=== PATIENT | male | born 1945 | race Caucasian/White ===

== ENCOUNTER 2017-12-29 15:22 | Inpatient (IN) | payer MEDICARE, OTHER ==
[~2017-12-29] VITALS: Ht 182.9 cm; Wt 70.9 kg
[2017-12-29] MEDS ORDERED: LORazepam 2 mg/ml vial IV ONE (15:45)
[2017-12-29] MEDS ORDERED: aspirin 81mg tab.chew PO ONE (15:45)
[2017-12-29] MEDS ORDERED: ondansetron/PF 4mg/2ml inj IV ONE (15:45)
[2017-12-29] MEDS ORDERED: magnesium 2GM in 50ml NS 50 ML IV ONE (16:15)
[2017-12-29] MEDS ORDERED: normal saline 1000ml 1,000 ML IV ONE (16:15)
[2017-12-29] MEDS ORDERED: verapamil 2.5 mg/ml inj IV ONE ×2 (16:15→17:05)
[2017-12-29 16:56] LABS: BASOPHILS % (AUTO) 0.3 % (0-1); EOSINOPHILS % (AUTO) 0 % (0-6); HEMATOCRIT 41.8 % (42.0-52.0); HEMOGLOBIN 14.3 g/dl (14.0-17.9); LYMPHOCYTES # (AUTO) 1.1 X10'3 (1.1-4.8); MEAN CORPUSCULAR HEMOGLOBIN 30.5 PG (27.0-31.0); MEAN CORPUSCULAR HGB CONC 34.2 % (33.0-36.5); MEAN CORPUSCULAR VOLUME 89.3 FL (78-98); MONOCYTES # (AUTO) 0.5 X10'3 (0-0.9); NEUTROPHILS # (AUTO) 7.8 X10'3 (1.8-7.7); NEUTROPHILS % (AUTO) 82.7 % (42-75); PLATELET COUNT 225 X10'3 (140-440); RED BLOOD COUNT 4.67 X10'6 (4.70-6.10); RED CELL DISTRIBUTION WIDTH 14.4 % (11.5-14.5); WHITE BLOOD COUNT 9.4 X10'3 (4.5-11.0)
[2017-12-29 17:07] LABS: PARTIAL THROMBOPLASTIN TIME 26 SECONDS (22-32); PROTHROMBIN TIME 10.8 SECONDS (9.0-12.0)
[2017-12-29 17:18] LABS: ALANINE AMINOTRANSFERASE 27 U/L (12-78); ALBUMIN/GLOBULIN RATIO 1.1 (1.1-1.5); ALKALINE PHOSPHATASE 73 IU/L (46-116); ANION GAP 13 (8-16); ASPARTATE AMINO TRANSFERASE 24 U/L (10-37); BILIRUBIN,TOTAL 0.9 MG/DL (0.1-1.0); BLOOD UREA NITROGEN 17 MG/DL (7-18); BUN/CREATININE RATIO 12.5 (5.4-32.0); CALCIUM 9.3 MG/DL (8.5-10.1); CHLORIDE 107 MMOL/L (99-107); CREATININE 1.36 MG/DL (0.60-1.10); GLUCOSE 99 MG/DL (70-104); PHOSPHORUS 2.2 MG/DL (2.3-4.5); POTASSIUM 4.3 MMOL/L (3.5-5.1); SODIUM 141 MMOL/L (135-145); TOTAL CARBON DIOXIDE 21.4 MMOL/L (24-32); TOTAL PROTEIN 7.5 G/DL (6.4-8.2); eGFR 51 ML/MIN
[2017-12-29] MEDS ORDERED: diltiazem-D5W 125mg/125ml 125 ML IV ONE (17:35)
[2017-12-29] MEDS ORDERED: ondansetron/PF 4mg/2ml inj IV PRN (18:15)
[2017-12-29] MEDS ORDERED: heparin 10,000 units/1 ML INJ IV ONE (18:15)
[2017-12-29] MEDS ORDERED: mag hydrox/Alum hydrox/simeth 30ml oral suspension PO PRN (18:15)
[2017-12-29] MEDS ORDERED: morphine 4 MG/ML inj SYRINge IV PRN ×2 (18:15)
[2017-12-29] MEDS ORDERED: diltiazem-D5W 125mg/125ml 125 ML IV SCH (18:15)
[2017-12-29] MEDS ORDERED: acetaminophen 325mg tablet PO PRN (18:15)
[2017-12-29] MEDS ORDERED: magnesium hydroxide 30ml (MOM) UD suspension PO PRN (18:15)
[2017-12-29] MEDS ORDERED: aspirin 325mg tablet PO ONE (18:15)
[2017-12-29 19:56] LABS: CLARITY,URINE SLIGHTLY CLOUDY (Clear); COLOR,URINE YELLOW (Yellow); GLUCOSE, URINE NEGATIVE (Neg); KETONES,URINE 15 mg/dl (Neg); LEUKOCYTE ESTERASE ,URINE NEGATIVE (Neg); NITRITES, URINE NEGATIVE (Neg); OCCULT BLOOD,URINE TRACE-INTACT (Neg); PROTEIN,URINE 100 mg/dl (Neg); UROBILINOGEN,URINE 0.2 E.U/dL (0.2-1.0)
[2017-12-29 20:29] LABS: UA COLLECTION TYPE URINAL
[2017-12-29] MEDS: metoprolol tartrate 12.5mg (1/2 tablet) PO SCH (20:43)
[2017-12-29 20:55] LABS: CELLULAR CAST 0-4 /LPF (NEGATIVE)
[2017-12-29 20:57] LABS: RBC,URINE 0-2 /HPF (0-2); WBC,URINE 0-4 /HPF (0-4)
[2017-12-29 20:58] LABS: BACTERIA,URINE FEW /HPF (Neg); MUCUS STRANDS MANY /LPF (Neg); SQUAMOUS EPITHELIAL CELL,UR FEW /LPF (FEW)
[2017-12-29 21:32] LABS: BASOPHILS # (AUTO) 0.1 X10'3 (0-0.2); BASOPHILS % (AUTO) 1.1 % (0-1); EOSINOPHILS # (AUTO) 0.1 X10'3 (0-0.9); EOSINOPHILS % (AUTO) 0.7 % (0-6); HEMATOCRIT 39.6 % (42.0-52.0); HEMOGLOBIN 13.3 g/dl (14.0-17.9); LYMPHOCYTES # (AUTO) 1.8 X10'3 (1.1-4.8); MEAN CORPUSCULAR HGB CONC 33.5 % (33.0-36.5); MEAN CORPUSCULAR VOLUME 89.7 FL (78-98); MEAN PLATELET VOLUME 8.6 FL (7.4-10.4); MONOCYTES # (AUTO) 0.5 X10'3 (0-0.9); MONOCYTES % (AUTO) 6.7 % (2-12); NEUTROPHILS % (AUTO) 67.5 % (42-75); PLATELET COUNT 213 X10'3 (140-440); RED BLOOD COUNT 4.42 X10'6 (4.70-6.10); RED CELL DISTRIBUTION WIDTH 14.3 % (11.5-14.5); WHITE BLOOD COUNT 7.4 X10'3 (4.5-11.0)
[2017-12-29 21:45] LABS: INR 1.1 INR; PARTIAL THROMBOPLASTIN TIME 60 SECONDS (22-32)
[2017-12-30] MEDS: diltiazem SR 60mg capsule (twice daily) PO SCH ×2 (02:15→07:16)
[2017-12-30 03:11] LABS: BASOPHILS % (AUTO) 0.5 % (0-1); EOSINOPHILS # (AUTO) 0.1 X10'3 (0-0.9); EOSINOPHILS % (AUTO) 1.4 % (0-6); HEMATOCRIT 38.6 % (42.0-52.0); HEMOGLOBIN 13.1 g/dl (14.0-17.9); LYMPHOCYTES # (AUTO) 1.4 X10'3 (1.1-4.8); LYMPHOCYTES % (AUTO) 21.5 % (21-51); MEAN CORPUSCULAR HEMOGLOBIN 30.2 PG (27.0-31.0); MEAN CORPUSCULAR HGB CONC 33.9 % (33.0-36.5); MEAN CORPUSCULAR VOLUME 88.9 FL (78-98); MEAN PLATELET VOLUME 9.1 FL (7.4-10.4); MONOCYTES # (AUTO) 0.5 X10'3 (0-0.9); MONOCYTES % (AUTO) 7.7 % (2-12); NEUTROPHILS # (AUTO) 4.6 X10'3 (1.8-7.7); NEUTROPHILS % (AUTO) 68.9 % (42-75); PLATELET COUNT 205 X10'3 (140-440); RED BLOOD COUNT 4.34 X10'6 (4.70-6.10); RED CELL DISTRIBUTION WIDTH 14.5 % (11.5-14.5); WHITE BLOOD COUNT 6.6 X10'3 (4.5-11.0)
[2017-12-30 03:35] LABS: ALANINE AMINOTRANSFERASE 24 U/L (12-78); ALBUMIN 3.4 G/DL (3.4-5.0); ALBUMIN/GLOBULIN RATIO 1.1 (1.1-1.5); ALKALINE PHOSPHATASE 64 IU/L (46-116); ANION GAP 8 (8-16); ASPARTATE AMINO TRANSFERASE 24 U/L (10-37); BILIRUBIN,TOTAL 0.9 MG/DL (0.1-1.0); BLOOD UREA NITROGEN 19 MG/DL (7-18); BUN/CREATININE RATIO 16.4 (5.4-32.0); CALCIUM 8.8 MG/DL (8.5-10.1); CHLORIDE 109 MMOL/L (99-107); CHOL/HDL RATIO 3.5 (0.00-4.99); CHOLESTEROL 157 MG/DL (0-200); CREATININE 1.16 MG/DL (0.60-1.10); GLUCOSE 95 MG/DL (70-104); HDL CHOLESTEROL 45 MG/DL (35-60); LDL CHOLESTEROL 101 MG/DL (50-100); SODIUM 141 MMOL/L (135-145); TOTAL CARBON DIOXIDE 23.6 MMOL/L (24-32); TOTAL PROTEIN 6.6 G/DL (6.4-8.2); TRIGLYCERIDES 45 MG/DL (20-135); eGFR 62 ML/MIN
[2017-12-30 03:37] LABS: POTASSIUM 4.4 MMOL/L (3.5-5.1)
[2017-12-30] MEDS ORDERED: ASPI-611 PO (05:37)
[2017-12-30] MEDS: atorvastatin 20mg tablet PO SCH (07:16)
[2017-12-30] MEDS: lisinopril 2.5mg tablet PO SCH (07:17)
[2017-12-30] MEDS: metoprolol tartrate 12.5mg (1/2 tablet) PO SCH ×2 (07:17→20:43)
[2017-12-30] MEDS: aspirin 325mg tablet PO SCH (07:18)
[2017-12-30] MEDS: heparin 10,000 units/1 ML INJ IV PRN (09:42)
[2017-12-30] MEDS: diltiazem-D5W 125mg/125ml 125 ML IV SCH (10:32)
[2017-12-30 16:40] VITALS: BP 92/69
[2017-12-30 19:00] VITALS: BP 109/65
[2017-12-30 21:00] VITALS: BP 110/78
[2017-12-30] MEDS ORDERED: sodium bicarbonate (8.4%) inj. 150 MEQ in normal saline 1000ml 900 ML IV SCH (21:40)
[2017-12-30] MEDS ORDERED: amiodarone 200mg tablet PO ONE (21:40)
[2017-12-30] MEDS ORDERED: acetylcysteine 200 MG/ml 4ml vial PO ONE (21:40)
[2017-12-30] MEDS ORDERED: sodium bicarbonate (8.4%) 1 mEq/ml syringe ONE ×2 (21:49→21:50)
[2017-12-30 23:00] VITALS: BP 104/51
[2017-12-31] VITALS (22 sets, daily range): BP systolic 88–137; BP diastolic 53–91
[2017-12-31] MEDS: heparin 10,000 units/1 ML INJ IV PRN (00:49)
[2017-12-31 06:34] LABS: BASOPHILS # (AUTO) 0.1 X10'3 (0-0.2); BASOPHILS % (AUTO) 1.2 % (0-1); EOSINOPHILS # (AUTO) 0.1 X10'3 (0-0.9); HEMATOCRIT 38.9 % (42.0-52.0); HEMOGLOBIN 13.5 g/dl (14.0-17.9); LYMPHOCYTES # (AUTO) 1.5 X10'3 (1.1-4.8); LYMPHOCYTES % (AUTO) 28.2 % (21-51); MEAN CORPUSCULAR HEMOGLOBIN 30.9 PG (27.0-31.0); MEAN CORPUSCULAR HGB CONC 34.7 % (33.0-36.5); MEAN PLATELET VOLUME 9.1 FL (7.4-10.4); MONOCYTES # (AUTO) 0.4 X10'3 (0-0.9); MONOCYTES % (AUTO) 7.8 % (2-12); NEUTROPHILS # (AUTO) 3.2 X10'3 (1.8-7.7); NEUTROPHILS % (AUTO) 60.8 % (42-75); PLATELET COUNT 191 X10'3 (140-440); RED BLOOD COUNT 4.36 X10'6 (4.70-6.10); RED CELL DISTRIBUTION WIDTH 14.3 % (11.5-14.5); WHITE BLOOD COUNT 5.2 X10'3 (4.5-11.0)
[2017-12-31 07:55] LABS: ALANINE AMINOTRANSFERASE 25 U/L (12-78); ALBUMIN 3.4 G/DL (3.4-5.0); ALBUMIN/GLOBULIN RATIO 1.1 (1.1-1.5); ALKALINE PHOSPHATASE 66 IU/L (46-116); ANION GAP 14 (8-16); ASPARTATE AMINO TRANSFERASE 19 U/L (10-37); BILIRUBIN,TOTAL 0.7 MG/DL (0.1-1.0); BLOOD UREA NITROGEN 19 MG/DL (7-18); BUN/CREATININE RATIO 17.8 (5.4-32.0); CALCIUM 8.8 MG/DL (8.5-10.1); CHLORIDE 106 MMOL/L (99-107); CREATININE 1.07 MG/DL (0.60-1.10); GLUCOSE 94 MG/DL (70-104); POTASSIUM 3.9 MMOL/L (3.5-5.1); SODIUM 143 MMOL/L (135-145); TOTAL PROTEIN 6.5 G/DL (6.4-8.2); eGFR 68 ML/MIN
[2017-12-31] MEDS: metoprolol tartrate 12.5mg (1/2 tablet) PO SCH (08:00)
[2017-12-31] MEDS: lisinopril 2.5mg tablet PO SCH (08:00)
[2017-12-31] MEDS ORDERED: acetylcysteine 200 MG/ml 4ml vial PO SCH (08:00)
[2017-12-31] MEDS: furosemide 20 MG/2 ML vial IV SCH (08:07)
[2017-12-31] MEDS: atorvastatin 20mg tablet PO SCH (08:08)
[2017-12-31] MEDS: amiodarone 200mg tablet PO SCH ×2 (08:08→20:26)
[2017-12-31] MEDS: aspirin 325mg tablet PO SCH (08:24)
[2017-12-31] MEDS: diltiazem-D5W 125mg/125ml 125 ML IV SCH ×2 (08:55→11:12)
[2017-12-31] MEDS ORDERED: LORazepam 0.5 MG tablet PO PRN (11:05)
[2017-12-31] MEDS ORDERED: SODIUM CHLORIDE 0.45% IV SCH (13:00)
[2017-12-31] MEDS ORDERED: SODIUM BICARBONATE IV SCH (13:00)
[2017-12-31] MEDS ORDERED: nitroGLYCERIN-Tridil 50MG/D5W 250 ML IV ONE (15:19)
[2017-12-31] MEDS ORDERED: iohexol 350MG/ML 100ml bottle IV ONE (15:20)
[2017-12-31] MEDS ORDERED: heparin 1,000unit/ml 10ml vial 10 ML ONE (15:20)
[2017-12-31] MEDS ORDERED: LIDOcaine 1%/PF (10mg/ml) 5ml vial ONE (15:20)
[2017-12-31] MEDS ORDERED: iohexol 350 MG/ML 50ML vial IV ONE (15:20)
[2017-12-31] MEDS ORDERED: fentaNYL/PF 50MCG/1 ML 2ML syringe ONE (15:47)
[2017-12-31] MEDS ORDERED: midazolam 2 mg/2 ml injection ONE (15:47)
[2017-12-31 16:36] LABS: ISTAT HGB ART 13.9 g/dl (14.0-18.0); ISTAT Hct ART 41 %PCV (42-52); ISTAT O2 SATURATION ARTERIAL 92 % (95-98); ISTAT SOURCE ART
[2017-12-31 16:36] LABS: ISTAT Hct MIX 40 %PCV (42-52); ISTAT O2 SATURATION MIX VENOUS 72 % (60-80); ISTAT SOURCE MIX
[2017-12-31] MEDS: carVEDilol 12.5mg tablet PO SCH (20:27)
[2018-01-01 02:00] VITALS: BP 111/55
[2018-01-01 05:48] LABS: ALANINE AMINOTRANSFERASE 27 U/L (12-78); ALBUMIN 3.4 G/DL (3.4-5.0); ALBUMIN/GLOBULIN RATIO 1.1 (1.1-1.5); ALKALINE PHOSPHATASE 65 IU/L (46-116); ANION GAP 11 (8-16); ASPARTATE AMINO TRANSFERASE 16 U/L (10-37); BILIRUBIN,TOTAL 0.9 MG/DL (0.1-1.0); BLOOD UREA NITROGEN 15 MG/DL (7-18); BUN/CREATININE RATIO 13.4 (5.4-32.0); CALCIUM 8.9 MG/DL (8.5-10.1); CHLORIDE 105 MMOL/L (99-107); CREATININE 1.12 MG/DL (0.60-1.10); GLUCOSE 85 MG/DL (70-104); POTASSIUM 3.6 MMOL/L (3.5-5.1); SODIUM 144 MMOL/L (135-145); TOTAL CARBON DIOXIDE 27.7 MMOL/L (24-32); TOTAL PROTEIN 6.5 G/DL (6.4-8.2); eGFR 64 ML/MIN
[2018-01-01 07:00] VITALS: BP 114/70
[2018-01-01] MEDS: atorvastatin 20mg tablet PO SCH (07:56)
[2018-01-01] MEDS: aspirin 325mg tablet PO SCH (07:56)
[2018-01-01] MEDS: amiodarone 200mg tablet PO SCH ×2 (07:56→20:26)
[2018-01-01] MEDS: furosemide 20 MG/2 ML vial IV SCH (07:56)
[2018-01-01] MEDS: apixaban 5mg tablet PO SCH ×2 (07:56→20:24)
[2018-01-01] MEDS: carVEDilol 12.5mg tablet PO SCH ×2 (07:57→20:23)
[2018-01-01] MEDS ORDERED: carVEDilol 12.5mg tablet PO ONE (08:25)
[2018-01-01] MEDS ORDERED: spironolactone 25 MG tablet PO SCH (08:30)
[2018-01-01] MEDS ORDERED: digoxin 250mcg/ml 2ml ampule IV ONE ×3 (09:25→21:00)
[2018-01-01 11:00] VITALS: BP 106/65
[2018-01-01] MEDS ORDERED: lisinopril 5mg tablet PO SCH (12:00)
[2018-01-01 15:00] VITALS: BP 94/55
[2018-01-01] MEDS ORDERED: nitroGLYCERIN 0.4mg SUBLingual tab SL PRN (16:20)
[2018-01-01] MEDS: aspirin 81mg tablet.DR PO SCH (17:32)
[2018-01-01] MEDS ORDERED: potassium Cl 20 mEq SR tablet PO PRN ×2 (17:50)
[2018-01-01] MEDS ORDERED: magnesium 2GM in 50ml NS 50 ML IV PRN (17:50)
[2018-01-01] MEDS ORDERED: potassium Cl 40MEQ/NS 500ml 500 ML IV PRN ×2 (17:50)
[2018-01-01] MEDS ORDERED: magnesium Cl slow-release 64mg tablet PO PRN (17:50)
[2018-01-01] MEDS ORDERED: magnesium 4gm in 100ml NS 100 ML IV PRN (17:50)
[2018-01-01 18:00] VITALS: BP 135/90
[2018-01-01 22:00] VITALS: BP 125/63
[2018-01-02 02:00] VITALS: BP 99/53
[2018-01-02] MEDS ORDERED: digoxin 250mcg/ml 2ml ampule IV ONE (03:00)
[2018-01-02 06:01] LABS: ALANINE AMINOTRANSFERASE 27 U/L (12-78); ALBUMIN 3.4 G/DL (3.4-5.0); ALKALINE PHOSPHATASE 70 IU/L (46-116); ANION GAP 9 (8-16); ASPARTATE AMINO TRANSFERASE 18 U/L (10-37); BILIRUBIN,TOTAL 0.8 MG/DL (0.1-1.0); BLOOD UREA NITROGEN 22 MG/DL (7-18); BUN/CREATININE RATIO 15.8 (5.4-32.0); CALCIUM 9.1 MG/DL (8.5-10.1); CHLORIDE 103 MMOL/L (99-107); CREATININE 1.39 MG/DL (0.60-1.10); GLUCOSE 92 MG/DL (70-104); MAGNESIUM 1.8 MG/DL (1.5-2.4); POTASSIUM 4.1 MMOL/L (3.5-5.1); SODIUM 141 MMOL/L (135-145); TOTAL CARBON DIOXIDE 29.1 MMOL/L (24-32); TOTAL PROTEIN 6.8 G/DL (6.4-8.2); eGFR 50 ML/MIN
[2018-01-02 07:00] VITALS: BP 109/60
[2018-01-02] MEDS: aspirin 81mg tablet.DR PO SCH (08:16)
[2018-01-02] MEDS: apixaban 5mg tablet PO SCH (08:17)
[2018-01-02] MEDS: atorvastatin 20mg tablet PO SCH (08:17)
[2018-01-02] MEDS: amiodarone 200mg tablet PO SCH (08:17)
[2018-01-02] MEDS: carVEDilol 12.5mg tablet PO SCH (08:20)
[2018-01-02] MEDS ORDERED: spironolactone 25 MG tablet PO SCH (08:30)
[2018-01-02 11:00] VITALS: BP 129/52
[2018-01-02] MEDS ORDERED: lisinopril 5mg tablet PO SCH (12:00)
[2018-01-02] MEDS ORDERED: NITR0.4T51 SL (13:31)
[2018-01-02] MEDS ORDERED: CARV25TA2 PO (13:31)
[2018-01-02] MEDS ORDERED: APIX5TAB3 PO (13:31)
[2018-01-02] MEDS ORDERED: SPIR25TA3 PO (13:31)
[2018-01-02] MEDS ORDERED: AMIO200T57 PO (13:31)
[2018-01-02] MEDS ORDERED: LISI-604 PO (13:31)
[2018-01-02] MEDS ORDERED: ATOR20TA66 PO (13:31)
[2018-01-02 15:00] VITALS: BP 126/57
[2018-01-02 17:31] VITALS: BP 129/52
[2018-01-02 19:00] VITALS: BP 139/90
== END 2018-01-02 19:30 | disposition home or self-care (01) | DRG 286 ==
LOC: ER 15:24 → ED HOLD 18:12 → EDBEDREQ 12-30 15:34 → PCU 3S 12-30 16:30
PROVIDERS: ADMIT Legal Medicine; ATTEND Internal Medicine
PROC: 4A023N8 Measurement of Cardiac Sampling and Pressure, Bilateral, Percutaneous Approach (ICD-10-PCS; principal; 2017-12-31)
PROC: B2111ZZ Fluoroscopy of Multiple Coronary Arteries using Low Osmolar Contrast (ICD-10-PCS; 2017-12-31)
PROC: B2151ZZ Fluoroscopy of Left Heart using Low Osmolar Contrast (ICD-10-PCS; 2017-12-31)
DX: I48.92 Unspecified atrial flutter (principal); I50.21 Acute systolic (congestive) heart failure; I42.0 Dilated cardiomyopathy; I08.1 Rheumatic disorders of both mitral and tricuspid valves; J44.9 Chronic obstructive pulmonary disease, unspecified; I13.0 Hypertensive heart and chronic kidney disease with heart failure and stage 1 through stage 4 chronic kidney disease, or unspecified chronic kidney disease; I45.89 Other specified conduction disorders; I48.91 Unspecified atrial fibrillation; I25.10 Atherosclerotic heart disease of native coronary artery without angina pectoris; R74.8 Abnormal levels of other serum enzymes; N18.9 Chronic kidney disease, unspecified; I09.9 Rheumatic heart disease, unspecified; Z85.828 Personal history of other malignant neoplasm of skin; Z87.891 Personal history of nicotine dependence; Z80.0 Family history of malignant neoplasm of digestive organs; Z80.8 Family history of malignant neoplasm of other organs or systems
CPT/HCPCS: 36415; 71045; 80053; 80061; 81001; 82803; 83036; 83735; 83880; 84100; 84484; 85014; 85025; 85347; 85610; 85730; 87070; 93005; 93306; 93460; 96365; 96366; 96375; 99152; 99153; 99285; A6257; A6258; C1760; C1769; C1894; J1160; J1644; J1940; J2001; J2060; J2250; J2405; J3010; J3475; J3490; J7030; Q9967

== ENCOUNTER → 2018-02-01 | Day surgery (SDC) | payer MEDICARE ==
[2018-01-31 10:06] LABS: BASOPHILS % (AUTO) 0.5 % (0-1); EOSINOPHILS # (AUTO) 0.1 X10'3 (0-0.9); EOSINOPHILS % (AUTO) 1.2 % (0-6); HEMATOCRIT 41.1 % (42.0-52.0); HEMOGLOBIN 13.7 g/dl (14.0-17.9); LYMPHOCYTES # (AUTO) 1.1 X10'3 (1.1-4.8); LYMPHOCYTES % (AUTO) 13.5 % (21-51); MEAN CORPUSCULAR HEMOGLOBIN 29.6 PG (27.0-31.0); MEAN CORPUSCULAR HGB CONC 33.3 % (33.0-36.5); MEAN CORPUSCULAR VOLUME 88.8 FL (78-98); MEAN PLATELET VOLUME 8.4 FL (7.4-10.4); MONOCYTES # (AUTO) 0.3 X10'3 (0-0.9); NEUTROPHILS # (AUTO) 6.7 X10'3 (1.8-7.7); NEUTROPHILS % (AUTO) 80.8 % (42-75); PLATELET COUNT 245 X10'3 (140-440); RED BLOOD COUNT 4.63 X10'6 (4.70-6.10); RED CELL DISTRIBUTION WIDTH 12.9 % (11.5-14.5); WHITE BLOOD COUNT 8.2 X10'3 (4.5-11.0)
[2018-01-31 10:14] LABS: ALBUMIN 3.6 G/DL (3.4-5.0); ANION GAP 7 (8-16); BLOOD UREA NITROGEN 25 MG/DL (7-18); BUN/CREATININE RATIO 16.4 (5.4-32.0); CALCIUM 9.5 MG/DL (8.5-10.1); CHLORIDE 107 MMOL/L (99-107); CREATININE 1.52 MG/DL (0.60-1.10); GLUCOSE 100 MG/DL (70-104); POTASSIUM 5.3 MMOL/L (3.5-5.1); SODIUM 142 MMOL/L (135-145); TOTAL CARBON DIOXIDE 28.5 MMOL/L (24-32); eGFR 45 ML/MIN
[2018-01-31 10:15] LABS: INR 1.1 INR; PROTHROMBIN TIME 11.1 SECONDS (9.0-12.0)
[2018-02-01] VITALS (25 sets, daily range): BP systolic 84–119; BP diastolic 47–83
[~2018-02-01] VITALS: Ht 182.9 cm; Wt 73.6 kg
[~2018-02-01] MED LIST: AMIO200T57 PO; APIX5TAB3 PO; ASPI-611 PO; ATOR20TA PO; ATOR20TA66 PO; CARV25TA2 PO; LISI-604 PO; LISI2.5T2 PO; LORazepam 0.5 MG tablet PO ONE; MIDAZolam 5mg/ml 2ml vial IV ONE; NITR0.4T51 SL; SPIR25TA3 PO; amiodarone in dextrose, iso-osm 150mg/100ml bag IV ONE; atropine 0.1mg/ml 10ml syringe IV ONE; diphenhydrAMINE 25mg capsule PO ONE; morphine 10mg/ml inj. IV ONE; normal saline 1000ml 1,000 ML IV SCH
== END | disposition home or self-care (01) ==
LOC: SSTAY O 09:34
PROVIDERS: ATTEND Internal Medicine Cardiovascular Disease
DX: I48.3 Typical atrial flutter (principal); I42.0 Dilated cardiomyopathy; I25.10 Atherosclerotic heart disease of native coronary artery without angina pectoris; I48.91 Unspecified atrial fibrillation; I50.22 Chronic systolic (congestive) heart failure; E78.5 Hyperlipidemia, unspecified; M19.90 Unspecified osteoarthritis, unspecified site; F10.21 Alcohol dependence, in remission; Z98.52 Vasectomy status; Z79.01 Long term (current) use of anticoagulants; Z90.89 Acquired absence of other organs; Z98.42 Cataract extraction status, left eye; Z98.41 Cataract extraction status, right eye; Z87.891 Personal history of nicotine dependence; Z85.828 Personal history of other malignant neoplasm of skin; Z79.899 Other long term (current) drug therapy
CPT/HCPCS: 36415; 80048; 85025; 85610; 92960; 93005; J0282; J0461; J2250; J2270; J7030; Q0163; A4620

== ENCOUNTER 2018-03-15 05:53 | Day surgery (SDC) | payer MEDICARE ==
[2018-03-14 09:32] LABS: BASOPHILS # (AUTO) 0.1 X10'3 (0-0.2); BASOPHILS % (AUTO) 0.9 % (0-1); EOSINOPHILS # (AUTO) 0.1 X10'3 (0-0.9); EOSINOPHILS % (AUTO) 2.4 % (0-6); HEMATOCRIT 38.4 % (42.0-52.0); HEMOGLOBIN 13.1 g/dl (14.0-17.9); LYMPHOCYTES # (AUTO) 1.3 X10'3 (1.1-4.8); LYMPHOCYTES % (AUTO) 21.7 % (21-51); MEAN CORPUSCULAR HEMOGLOBIN 30.5 PG (27.0-31.0); MEAN CORPUSCULAR HGB CONC 34.1 % (33.0-36.5); MEAN CORPUSCULAR VOLUME 89.3 FL (78-98); MEAN PLATELET VOLUME 9.3 FL (7.4-10.4); MONOCYTES # (AUTO) 0.4 X10'3 (0-0.9); NEUTROPHILS # (AUTO) 4.2 X10'3 (1.8-7.7); PLATELET COUNT 230 X10'3 (140-440); WHITE BLOOD COUNT 6.1 X10'3 (4.5-11.0)
[2018-03-14 09:42] LABS: ALBUMIN 4.1 G/DL (3.4-5.0); ANION GAP 10 (8-16); BLOOD UREA NITROGEN 24 MG/DL (7-18); CALCIUM 9.3 MG/DL (8.5-10.1); CHLORIDE 104 MMOL/L (99-107); CREATININE 1.72 MG/DL (0.60-1.10); GLUCOSE 96 MG/DL (70-104); SODIUM 137 MMOL/L (135-145); TOTAL CARBON DIOXIDE 22.8 MMOL/L (24-32); eGFR 39 ML/MIN
[2018-03-14 09:44] LABS: PARTIAL THROMBOPLASTIN TIME 28 SECONDS (22-32); PROTHROMBIN TIME 10.1 SECONDS (9.0-12.0)
[~2018-03-15] VITALS: Ht 182.9 cm; Wt 69.7 kg
[2018-03-15] VITALS (12 sets, daily range): BP systolic 104–156; BP diastolic 45–76
[~2018-03-15 05:53] MED LIST changes: -ASPI-611 PO; -ATOR20TA66 PO; -LISI-604 PO; -LORazepam 0.5 MG tablet PO ONE; -MIDAZolam 5mg/ml 2ml vial IV ONE; -amiodarone in dextrose, iso-osm 150mg/100ml bag IV ONE; -atropine 0.1mg/ml 10ml syringe IV ONE; -diphenhydrAMINE 25mg capsule PO ONE; -morphine 10mg/ml inj. IV ONE; -normal saline 1000ml 1,000 ML IV SCH
[2018-03-15] MEDS ORDERED: ASPI-1071 PO (06:42)
[2018-03-15] MEDS ORDERED: ceFAZolin 1GM/D5W- ADD-VANTAGE 50 ML IV ONE ×2 (06:45→07:30)
[2018-03-15] MEDS ORDERED: normal saline 1000ml 1,000 ML IV SCH (06:45)
[2018-03-15] MEDS ORDERED: LIDOcaine 1% w/EPI 1:100,000 30ml vial (MDV) ONE (07:30)
[2018-03-15] MEDS ORDERED: ceFAZolin 1000mg inj ONE (07:30)
[2018-03-15] MEDS ORDERED: midazolam 2 mg/2 ml injection ONE ×2 (07:50→08:21)
[2018-03-15] MEDS ORDERED: fentaNYL/PF 50MCG/1 ML 2ML syringe ONE (07:50)
[2018-03-15] MEDS ORDERED: HYDROcodone/acetaminophen 10/325mg tab PO PRN (14:30)
[2018-03-15] MEDS ORDERED: HYDROcodone/acetaminophen 5mg/325mg tablet PO PRN (14:30)
[2018-03-15] MEDS ORDERED: ceFAZolin 1GM/D5W- ADD-VANTAGE 50 ML IV SCH (15:00)
== END 2018-03-15 16:00 | disposition home or self-care (01) ==
LOC: SSTAY O 05:53
PROVIDERS: ATTEND Internal Medicine Cardiovascular Disease
DX: I42.0 Dilated cardiomyopathy (principal); I49.5 Sick sinus syndrome; I48.0 Paroxysmal atrial fibrillation; E78.5 Hyperlipidemia, unspecified; I25.10 Atherosclerotic heart disease of native coronary artery without angina pectoris; I48.3 Typical atrial flutter; I50.22 Chronic systolic (congestive) heart failure; Z79.899 Other long term (current) drug therapy; Z87.891 Personal history of nicotine dependence; Z80.42 Family history of malignant neoplasm of prostate; Z80.8 Family history of malignant neoplasm of other organs or systems
CPT/HCPCS: 33249; 36415; 71046; 80048; 85025; 85610; 85730; 93005; A4565; A6449; C1721; C1894; C1895; J0690; J2250; J3010; J3490; J7030; 99152; 99153

== ENCOUNTER 2018-12-26 06:33 | Day surgery (SDC) | payer MEDICARE ==
[2018-12-25 11:09] LABS: BASOPHILS # (AUTO) 0.1 X10'3 (0-0.2); BASOPHILS % (AUTO) 1.4 % (0-1); EOSINOPHILS # (AUTO) 0.1 X10'3 (0-0.9); EOSINOPHILS % (AUTO) 2.2 % (0-6); HEMATOCRIT 40.8 % (42.0-52.0); HEMOGLOBIN 13.8 g/dl (14.0-17.9); LYMPHOCYTES # (AUTO) 1.1 X10'3 (1.1-4.8); LYMPHOCYTES % (AUTO) 19.4 % (21-51); MEAN CORPUSCULAR HEMOGLOBIN 30.1 PG (27.0-31.0); MEAN CORPUSCULAR HGB CONC 33.9 g/dL (33.0-36.5); MEAN CORPUSCULAR VOLUME 88.8 FL (78-98); MEAN PLATELET VOLUME 8.9 FL (7.4-10.4); MONOCYTES # (AUTO) 0.4 X10'3 (0-0.9); MONOCYTES % (AUTO) 6.6 % (2-12); NEUTROPHILS # (AUTO) 4.1 X10'3 (1.8-7.7); NEUTROPHILS % (AUTO) 70.4 % (42-75); PLATELET COUNT 230 X10'3 (140-440); RED CELL DISTRIBUTION WIDTH 13.4 % (11.5-14.5); WHITE BLOOD COUNT 5.8 X10'3 (4.5-11.0)
[2018-12-25 11:16] LABS: ALBUMIN 3.7 G/DL (3.4-5.0); ANION GAP 4 (8-16); BLOOD UREA NITROGEN 15 MG/DL (7-18); BUN/CREATININE RATIO 12.3 (5.4-32.0); CALCIUM 9.4 MG/DL (8.5-10.1); CHLORIDE 108 MMOL/L (99-107); CREATININE 1.22 MG/DL (0.60-1.10); GLUCOSE 93 MG/DL (70-104); POTASSIUM 4.4 MMOL/L (3.5-5.1); SODIUM 140 MMOL/L (135-145); TOTAL CARBON DIOXIDE 27.6 MMOL/L (24-32); eGFR 58 ML/MIN
[2018-12-25 11:25] LABS: PARTIAL THROMBOPLASTIN TIME 29 SECONDS (22-32)
[~2018-12-26] VITALS: Ht 182.9 cm; Wt 76.7 kg
[2018-12-26] VITALS (15 sets, daily range): BP systolic 94–141; BP diastolic 47–78
[~2018-12-26 06:33] MED LIST changes: +AMIO200T54 PO; -AMIO200T57 PO; +ASPI-1071 PO; -SPIR25TA3 PO; +SPIR25TA5 PO
[2018-12-26] MEDS ORDERED: normal saline 1000ml 1,000 ML IV SCH (07:15)
[2018-12-26] MEDS ORDERED: acetylcysteine 200 MG/ml 4ml vial PO PRN (07:15)
[2018-12-26] MEDS ORDERED: diphenhydrAMINE 25mg capsule PO PRN (07:15)
[2018-12-26] MEDS ORDERED: LORazepam 0.5 MG tablet PO PRN (07:25)
[2018-12-26] MEDS ORDERED: LOSA50TA64 PO (07:34)
[2018-12-26] MEDS ORDERED: nitroGLYCERIN-Tridil 50MG/D5W 250 ML IV ONE (10:20)
[2018-12-26] MEDS ORDERED: LIDOcaine 1% (10mg/ml)w/preservative injection 20ml MDV ONE (10:20)
[2018-12-26] MEDS ORDERED: heparin 1,000unit/ml 10ml vial 10 ML ONE (10:20)
[2018-12-26] MEDS ORDERED: iohexol 350 MG/ML 50ML vial IV ONE (10:20)
[2018-12-26] MEDS ORDERED: fentaNYL/PF 50MCG/1 ML 2ML syringe ONE (10:20)
[2018-12-26] MEDS ORDERED: midazolam 2 mg/2 ml injection ONE (10:20)
[2018-12-26] MEDS ORDERED: verapamil 2.5 mg/ml inj IV ONE (10:20)
[2018-12-26] MEDS ORDERED: iohexol 350 MG/1 ML 200ml bottle ONE (10:20)
[2018-12-26] MEDS ORDERED: phenylephrine 10mg/ml inj. ONE (11:02)
[2018-12-26] MEDS ORDERED: heparin 25,000 UNIT/250ml bag 250 ML IV ONE (11:17)
[2018-12-26] MEDS ORDERED: clopidogrel 300mg tablet ONE (11:32)
[2018-12-26] MEDS ORDERED: magnesium hydroxide 30ml (MOM) UD suspension PO PRN (12:25)
[2018-12-26] MEDS ORDERED: HYDROcodone/acetaminophen 10/325mg tab PO PRN ×2 (12:25)
[2018-12-26] MEDS ORDERED: proCHLORperazine 10 MG/2 ml inj IV PRN (12:25)
[2018-12-26] MEDS ORDERED: aspirin 81mg tab.chew PO ONE (12:25)
[2018-12-26] MEDS ORDERED: acetaminophen 325mg tablet PO PRN (12:25)
--- NOTE | 2018-12-26 17:16 | NUR ---
Problems reprioritized. Patient report given, questions answered & plan of care reviewed with MARTINA CAVANAUGH.
[2018-12-26] MEDS ORDERED: docusate sod 100mg capsule PO SCH (20:00)
[2018-12-27] MEDS ORDERED: aspirin 81mg tablet.DR PO SCH (08:00)
[2018-12-27] MEDS ORDERED: aspirin 81mg tab.chew PO SCH (08:00)
[2018-12-27] MEDS ORDERED: losartan 50mg tablet PO SCH (08:00)
== END 2018-12-26 18:46 | disposition home or self-care (01) ==
LOC: SSTAY O 06:33
PROVIDERS: ATTEND Internal Medicine Cardiovascular Disease
DX: I25.10 Atherosclerotic heart disease of native coronary artery without angina pectoris (principal); I49.5 Sick sinus syndrome; I48.92 Unspecified atrial flutter; E78.5 Hyperlipidemia, unspecified; I42.0 Dilated cardiomyopathy; Z79.82 Long term (current) use of aspirin; Z95.810 Presence of automatic (implantable) cardiac defibrillator; Z79.899 Other long term (current) drug therapy; Z79.01 Long term (current) use of anticoagulants
CPT/HCPCS: 36415; 80048; 85025; 85347; 85610; 85730; 93005; 93458; 99152; 99153; A6257; C1874; C9600; J1644; J2001; J2250; J2370; J3010; J7030; Q0163; Q9967; A4620; C1725; C1769; J3490

== ENCOUNTER 2021-08-27 10:08 | Emergency (ER) | payer MEDICARE ==
[~2021-08-27] VITALS: Ht 182.9 cm; Wt 72.7 kg
[~2021-08-27 10:08] MED LIST changes: -AMIO200T54 PO; -APIX5TAB3 PO; -ATOR20TA PO; -CARV25TA2 PO; -LISI2.5T2 PO; +LOSA50TA64 PO; -NITR0.4T51 SL; -SPIR25TA5 PO
[2021-08-27] MEDS ORDERED: aspirin 81mg tab.chew PO ONE (10:20)
[2021-08-27 11:13] LABS: BASOPHILS # (AUTO) 0.1 X10'3 (0-0.2); BASOPHILS % (AUTO) 1.3 % (0-1); EOSINOPHILS % (AUTO) 0.3 % (0-6); HEMATOCRIT 39.7 % (42.0-52.0); HEMOGLOBIN 13.4 g/dl (14.0-17.9); LYMPHOCYTES # (AUTO) 0.9 X10'3 (1.1-4.8); LYMPHOCYTES % (AUTO) 12.2 % (21-51); MEAN CORPUSCULAR HEMOGLOBIN 30.3 PG (27.0-31.0); MEAN CORPUSCULAR HGB CONC 33.7 g/dL (33.0-36.5); MEAN CORPUSCULAR VOLUME 89.9 FL (78-98); MONOCYTES # (AUTO) 0.4 X10'3 (0-0.9); MONOCYTES % (AUTO) 5.8 % (2-12); NEUTROPHILS # (AUTO) 5.7 X10'3 (1.8-7.7); NEUTROPHILS % (AUTO) 80.4 % (42-75); PLATELET COUNT 275 X10'3 (140-440); RED BLOOD COUNT 4.41 X10'6 (4.70-6.10); RED CELL DISTRIBUTION WIDTH 13.9 % (11.5-14.5); WHITE BLOOD COUNT 7.1 X10'3 (4.5-11.0)
[2021-08-27 11:28] LABS: ALANINE AMINOTRANSFERASE 21 U/L (12-78); ALBUMIN 3.7 G/DL (3.4-5.0); ALBUMIN/GLOBULIN RATIO 1.1 (1.1-1.5); ALKALINE PHOSPHATASE 60 IU/L (46-116); ANION GAP 13 (8-16); ASPARTATE AMINO TRANSFERASE 16 U/L (10-37); BILIRUBIN,TOTAL 0.9 MG/DL (0.1-1.0); BLOOD UREA NITROGEN 16 MG/DL (7-18); BUN/CREATININE RATIO 11.4 (5.4-32.0); CALCIUM 9.2 MG/DL (8.5-10.1); CHLORIDE 108 MMOL/L (99-107); GLUCOSE 108 MG/DL (70-104); POTASSIUM 4.2 MMOL/L (3.5-5.1); SODIUM 145 MMOL/L (135-145); TOTAL CARBON DIOXIDE 23.8 MMOL/L (24-32); TOTAL PROTEIN 7.1 G/DL (6.4-8.2); eGFR 49 ML/MIN
[2021-08-27] MEDS ORDERED: APIX5TAB3 PO (13:12)
[2021-08-27] MEDS ORDERED: AMIO200T61 PO (13:12)
[2021-08-27] MEDS ORDERED: CARV3.12 PO (13:12)
[2021-08-27 13:33] VITALS: BP 143/68
== END 2021-08-27 13:34 | disposition home or self-care (01) ==
LOC: ER 10:08
DX: I48.20 Chronic atrial fibrillation, unspecified (principal); N18.9 Chronic kidney disease, unspecified; Z95.810 Presence of automatic (implantable) cardiac defibrillator; Z79.82 Long term (current) use of aspirin; Z79.899 Other long term (current) drug therapy
CPT/HCPCS: 36415; 71045; 80053; 83735; 83880; 84484; 85025; 93005; 99285

== ENCOUNTER 2021-09-28 17:45 | Emergency (ER) | payer MEDICARE ==
[~2021-09-28] VITALS: Ht 182.9 cm; Wt 72.0 kg
[~2021-09-28 17:45] MED LIST changes: +APIX5TAB3 PO; +CARV3.12 PO
--- NOTE | 2021-09-28 20:32 | NUR ---
PT STATES DIZZINESS, "NOT FEELING RIGHT" IN CHEST, COUGHING UP BLOOD AND HAS CARDIAC HISTORY OF PACEMAKER AND DEFIBRILLATOR. ACS PROTOCOL ORDERED.
[2021-09-28 21:02] LABS: ALANINE AMINOTRANSFERASE 26 U/L (12-78); ALBUMIN/GLOBULIN RATIO 1.1 (1.1-1.5); ALKALINE PHOSPHATASE 64 IU/L (46-116); ANION GAP 7 (8-16); ASPARTATE AMINO TRANSFERASE 18 U/L (10-37); BASOPHILS # (AUTO) 0.1 X10'3 (0-0.2); BASOPHILS % (AUTO) 1.7 % (0-1); BILIRUBIN,TOTAL 0.5 MG/DL (0.1-1.0); BLOOD UREA NITROGEN 13 MG/DL (7-18); BUN/CREATININE RATIO 9.2 (5.4-32.0); CALCIUM 9.4 MG/DL (8.5-10.1); CHLORIDE 103 MMOL/L (99-107); CREATININE 1.41 MG/DL (0.60-1.10); EOSINOPHILS # (AUTO) 0.1 X10'3 (0-0.9); EOSINOPHILS % (AUTO) 1.7 % (0-6); GLUCOSE 101 MG/DL (70-104); HEMATOCRIT 37.9 % (42.0-52.0); HEMOGLOBIN 13.2 g/dl (14.0-17.9); LYMPHOCYTES # (AUTO) 1.6 X10'3 (1.1-4.8); LYMPHOCYTES % (AUTO) 21.7 % (21-51); MEAN CORPUSCULAR HEMOGLOBIN 31.3 PG (27.0-31.0); MEAN CORPUSCULAR HGB CONC 34.9 g/dL (33.0-36.5); MEAN CORPUSCULAR VOLUME 89.7 FL (78-98); MEAN PLATELET VOLUME 8.8 FL (7.4-10.4); MONOCYTES # (AUTO) 0.5 X10'3 (0-0.9); NEUTROPHILS % (AUTO) 67.9 % (42-75); PLATELET COUNT 254 X10'3 (140-440); POTASSIUM 4.5 MMOL/L (3.5-5.1); RED BLOOD COUNT 4.23 X10'6 (4.70-6.10); RED CELL DISTRIBUTION WIDTH 13.6 % (11.5-14.5); SODIUM 138 MMOL/L (135-145); TOTAL CARBON DIOXIDE 28.1 MMOL/L (24-32); TOTAL PROTEIN 7.6 G/DL (6.4-8.2); WHITE BLOOD COUNT 7.4 X10'3 (4.5-11.0); eGFR 49 ML/MIN
[2021-09-28 23:55] VITALS: BP 165/87
== END 2021-09-29 00:54 | disposition home or self-care (01) ==
LOC: ER 17:46
DX: R20.2 Paresthesia of skin (principal); R42 Dizziness and giddiness; R07.89 Other chest pain; R20.0 Anesthesia of skin; Z87.891 Personal history of nicotine dependence; Z79.82 Long term (current) use of aspirin; Z79.899 Other long term (current) drug therapy
CPT/HCPCS: 36415; 71045; 80053; 83880; 84484; 85025; 93005; 99285